=== PATIENT | male | born 1945 | race Caucasian/White ===

== ENCOUNTER → 2019-12-09 | Outpatient (CLI) | payer MEDICARE ==
[~2019-12-09] MED LIST: ALLO300T PO; CYAN100072 PO; GLUC1TAB27 PO
[2019-12-09 11:13] LABS: BASOPHILS # (AUTO) 0.04 x10^3/uL (0-0.1); BASOPHILS % (AUTO) 1 % (0-1); EOSINOPHILS # (AUTO) 0.14 x10^3/uL (0-0.4); EOSINOPHILS % (AUTO) 2 % (1-7); LYMPHOCYTES # (AUTO) 1.61 x10^3/uL (1-3.4); LYMPHOCYTES % (AUTO) 27 % (22-44); MD NO; MEAN CORPUSCULAR HEMOGLOBIN 33.7 pg (27.5-34.5); MEAN CORPUSCULAR HGB CONC 34.3 g/dL (33.2-36.2); MEAN CORPUSCULAR VOLUME 98.3 fL (81-97); MEAN PLATELET VOLUME 8.8 fL (7.4-10.4); MONOCYTES # (AUTO) 0.54 x10^3/uL (0.2-0.8); MONOCYTES % (AUTO) 9 % (2-9); NEUTROPHILS # (AUTO) 3.71 x10^3/uL (1.8-6.8); NEUTROPHILS % (AUTO) 61 % (42-75); PLATELET COUNT 198 x10^3/uL (130-400); RED BLOOD COUNT 4.67 x10^6/uL (4.38-5.82); RED CELL DISTRIBUTION WIDTH 12.9 % (9.4-14.8)
[2019-12-09 11:18] LABS: INTERNATIONAL NORMALIZED RATIO 1.01 (0.93-1.1); PROTHROMBIN TIME 10.4 Seconds (9.6-11.5)
[2019-12-09 11:21] LABS: ALANINE AMINOTRANSFERASE 66 U/L (12-78); ANION GAP 5 mmol/L (5-15); CALCIUM 9.4 mg/dL (8.5-10.1); CHLORIDE 107 mmol/L (98-107)
[2019-12-09 11:24] LABS: ALKALINE PHOSPHATASE 67 U/L (45-117); BILIRUBIN,TOTAL 0.7 mg/dL (0.2-1.0); CREATININE 1.02 mg/dL (0.7-1.3); TOTAL PROTEIN 7.5 g/dL (6.4-8.2)
== END | disposition home or self-care (01) ==
LOC: STAR 09:56
PROVIDERS: ATTEND Orthopaedic Surgery
DX: Z01.818 Encounter for other preprocedural examination (principal); Z11.59 Encounter for screening for other viral diseases; M16.11 Unilateral primary osteoarthritis, right hip; M25.551 Pain in right hip
CPT/HCPCS: 36415; 80053; 83036; 85025; 85610; 85730; 87081; 87635; 93005

== ENCOUNTER 2019-12-14 05:29 | Day surgery (SDC) | payer MEDICARE ==
[~2019-12-14] VITALS: Ht 182.9 cm; Wt 110.8 kg
[2019-12-14] MEDS ORDERED: LACTATED RINGERS 1,000 ML IV SCH (05:52)
[2019-12-14 05:58] VITALS: BP 152/80
[2019-12-14] MEDS ORDERED: GABAPENTIN 300 MG CAPSULE PO ONE (06:00)
[2019-12-14] MEDS ORDERED: ACETAMINOPHEN 500 MG TABLET PO ONE (06:00)
[2019-12-14] MEDS ORDERED: CHLORHEXIDINE 15 ML UDC MM ONE (06:00)
[2019-12-14] MEDS ORDERED: KETOROLAC 60 MG/2 ML ONE (06:34)
[2019-12-14] MEDS ORDERED: ROPIvacaine/PF 0.5%, 20 ML ONE (06:34)
[2019-12-14] MEDS ORDERED: ROPIvacaine/PF 0.5%, 30 ML ONE (06:34)
[2019-12-14] MEDS ORDERED: TRANEXAMIC ACID 100 MG/ML, 10ML ONE ×2 (06:34)
[2019-12-14] MEDS ORDERED: EPINEPHRINE 1 MG/ML, 1ML ONE (06:35)
[2019-12-14] MEDS ORDERED: SODIUM CHLORIDE 0.9% 50 ML ONE (06:35)
[2019-12-14] MEDS ORDERED: VANCOMYCIN 1,000 MG ONE (06:35)
[2019-12-14] MEDS ORDERED: FENTANYL PF 250 MCG/5ML ONE (06:43)
[2019-12-14] MEDS ORDERED: LIDOCAINE 1%, 10ML ONE (06:47)
[2019-12-14] MEDS ORDERED: DIPHENHYDRAMINE 25 MG CAPSULE PO PRN (07:00)
[2019-12-14] MEDS ORDERED: ONDANSETRON 2MG/ML, 2ML IV PRN (07:00)
[2019-12-14] MEDS ORDERED: SENNA/DOCUSATE TABLET PO PRN (07:00)
[2019-12-14] MEDS ORDERED: ZOLPIDEM 5MG TABLET PO PRN (07:00)
[2019-12-14] MEDS ORDERED: MAGNESIUM HYDROXIDE 8%, 30ML UDC PO PRN (07:00)
[2019-12-14] MEDS ORDERED: ONDANSETRON 4 MG TABLET PO PRN (07:00)
[2019-12-14] MEDS ORDERED: ACETAMINOPHEN 650 MG/20.3 ML UDC PO PRN (07:00)
[2019-12-14] MEDS ORDERED: HYDROcodone/APAP 5/325 TABLET PO PRN (07:00)
[2019-12-14] MEDS ORDERED: OXYcodone IR 5MG TABLET PO PRN (07:00)
[2019-12-14] MEDS ORDERED: BISACODYL 10 MG SUPP PR PRN (07:00)
[2019-12-14] MEDS ORDERED: ONDANSETRON 2MG/ML, 2ML ONE (07:20)
[2019-12-14] MEDS ORDERED: SUCCINYLCHOLINE 20 MG/ML, 10ML ONE (07:20)
[2019-12-14] MEDS ORDERED: CEFAZOLIN 1,000 MG ONE (07:20)
[2019-12-14] MEDS ORDERED: ROCURONIUM 10MG/ML,5ML ONE (07:20)
[2019-12-14] MEDS ORDERED: NEOSTIGMINE 1 MG/ML, 10ML ONE (07:20)
[2019-12-14] MEDS ORDERED: DEXAMETHASONE 4 MG/ML, 1ML ONE (07:20)
[2019-12-14] MEDS ORDERED: GLYCOPYRROLATE 0.2MG/1ML, 5ML ONE (07:20)
[2019-12-14] MEDS ORDERED: PROPOFOL 10 MG/ML, 20ML ONE (07:20)
[2019-12-14] MEDS ORDERED: FENTANYL PF 100 MCG/2ML ONE ×2 (07:23→08:07)
[2019-12-14] MEDS ORDERED: ACETAMINOPHEN 325 MG TABLET PO PRN (07:30)
[2019-12-14] MEDS ORDERED: PROMETHAZINE 25 MG SUPP PR PRN (07:30)
[2019-12-14] MEDS ORDERED: OXYcodone 5 MG/5 ML ORAL.SOL UDC PO PRN (07:30)
[2019-12-14] MEDS ORDERED: hydrALAzine 20 MG/ML, 1ML IV PRN (07:30)
[2019-12-14] MEDS ORDERED: LABETALOL 5MG/ML, 20ML IV PRN (07:30)
[2019-12-14] MEDS ORDERED: HYDROmorphone 1 MG/ML, 1ML INJ IVPush PRN (07:30)
[2019-12-14] MEDS ORDERED: METHOCARBAMOL 1,000 MG in DEXTROSE 5% 100 ML IV PRN (07:30)
[2019-12-14] MEDS ORDERED: PROMETHAZINE 25 MG/ML, 1ML IVPush PRN (07:30)
[2019-12-14] MEDS ORDERED: ONDANSETRON 2MG/ML, 2ML IVPush PRN (07:30)
[2019-12-14] MEDS ORDERED: OXYcodone 5 MG/5 ML ORAL.SOL UDC ONE (08:08)
[2019-12-14] MEDS: FENTANYL PF 100 MCG/2ML IV PRN ×2 (08:10→08:16)
[2019-12-14] MEDS ORDERED: DOCUSATE 100 MG CAPSULE PO SCH (09:00)
[2019-12-14] MEDS ORDERED: NS + 20MEQ KCL 1,000 ML IV SCH (11:00)
[2019-12-14] MEDS ORDERED: ALLOPURINOL 300 MG TABLET PO SCH (11:00)
[2019-12-14] MEDS ORDERED: TAMSULOSIN 0.4 MG CAP.ER.24H PO SCH (12:00)
[2019-12-14] MEDS ORDERED: ACETAMINOPHEN 325 MG TABLET ONE (14:14)
[2019-12-14 14:16] VITALS: BP 145/80
[2019-12-14] MEDS ORDERED: CEFAZOLIN PMX 2GM/50ML 50 ML IVPB SCH (15:00)
[2019-12-14] MEDS ORDERED: ASPIRIN 81 MG TABLET EC PO SCH (18:00)
[2019-12-14] MEDS ORDERED: ASPI-515 PO (18:20)
[2019-12-14] MEDS ORDERED: TRAM50TA2 PO (18:21)
[2019-12-14] MEDS ORDERED: OXYC5TAB3 PO (18:21)
[2019-12-14] MEDS ORDERED: MELO7.5T31 PO (18:22)
[2019-12-15] MEDS ORDERED: DEXAMETHASONE 4 MG/ML, 1ML IVPush SCH (06:00)
== END 2019-12-14 18:30 | disposition home or self-care (01) ==
LOC: OUT 05:29 → 4NE 09:55 → OUT 18:30
PROVIDERS: ATTEND Orthopaedic Surgery
DX: M16.11 Unilateral primary osteoarthritis, right hip (principal); M25.751 Osteophyte, right hip; M24.151 Other articular cartilage disorders, right hip; J44.9 Chronic obstructive pulmonary disease, unspecified; M10.9 Gout, unspecified; Z79.899 Other long term (current) drug therapy; Z87.891 Personal history of nicotine dependence; Z82.61 Family history of arthritis
CPT/HCPCS: 27130; 72170; 73501; 76000; 97162; C1713; C1776; J0171; J0330; J0690; J1100; J1885; J2405; J2704; J2710; J2795; J2800; J3010; J3370; J3480; J7120; G0378